=== PATIENT | male | born 1950 | race Caucasian/White ===

== ENCOUNTER 2018-11-28 13:32 | Emergency (ER) | payer OTHER ==
--- NOTE | 2018-11-28 13:55 | EDPHY ---
H & P Stated Complaint: right arm injury, seen at urgent, near syncopal episode sent here for eval Source: Patient, Family ( and daughter) Exam Limitations: No limitations - Personal History Current Tetanus Diphtheria and Acellular Pertussis (TDAP): Yes - Medical/Surgical History Hx Asthma: No Hx Chronic Respiratory Disease: No Hx Diabetes: Yes Hx Cardiac Disease: No Hx Renal Disease: No Hx Cirrhosis: No Hx Alcoholism: No Hx HIV/AIDS: No Hx Splenectomy or Spleen Trauma: No Other PMH: hypothyroid, diabetes type II, hypercholesteremia - Social History Smoking Status: Former smoker Time Seen by Provider: 11/28/18 13:55 HPI/ROS: HPI: This is a 68-year-old male who presents with Chief Complaint: right arm injury, seen at urgent, near syncopal episode sent here for eval Location: Right arm Quality: Injury Duration: 1-2 hours prior to arrival Signs and Symptoms: No bleeding, no radiation, no numbness, no weakness, no tingling, no incontinence, no decreased range of motion, no swelling, + pain, no fever, + deformity Timing: Acute Severity: Moderate Context: Patient is right-hand dominant, presents with complaints of 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 Patient reports that he was lifting rocks when he felt a pulling sensation in his biceps muscle and then deformity. He reports that the pain was so intense that he has felt lightheaded and became extremely nauseous. Patient then went to the urgent care for further evaluation. When he told him that he almost fainted due to the pain they directed him to the emergency room for further evaluation. Denies LOC/head injury/neck pain/dizziness/nausea/vomiting/ amnesia. Patient reports that he had a nuclear stress test this year that was "normal." Patient reports that he no longer feels faint and denies dizziness, chest pain, shortness of breath, headache, nausea, vomiting. He reports that he has no pain at this time. Modifying Factors: None Comment: ROS: A comprehensive 10 system review of systems is otherwise negative aside from elements mentioned in the history of present illness. MEDICAL/SURGICAL/SOCIAL HISTORY: Medical history: hypothyroid, diabetes type II, hypercholesteremia Surgical history: Denies Social history: with children. Former smoker. CONSTITUTIONAL: Physically fit adult white male, daughter and at bedside, awake and alert, no obvious distress HEENT: Atraumatic and normocephalic. NECK: supple, no midline tenderness, flexion 45 degrees, extension 45 degrees, right and left lateral flexion 45 degrees. No meningismus. Cardiovascular: Normal S1/S2, regular rate, regular rhythm, without murmur rub or gallop. PULMONARY/CHEST: Symmetrical and nontender. Clear to auscultation bilaterally. Good air movement. No accessory muscle usage. ABDOMEN: Soft, nondistended, nontender. EXTREMITIES: 2/2 pulses, strength 5/5, right SHOULDER: Arc test abduction to 180, abduction to 45, horizontal flexion 130, horizontal extension to 45, deltoid strength 5/5. No pain with Neer test/Díaz test (impingement). No Tenderness to palpation over AC joint. Deformity noted at the long head of the biceps. DIP/PIP/MCP flexion/extension intact with good light touch sensation. Tenderness at the distal biceps head. Ecchymosis noted over the bicep head. Positive biceps squeeze test. no clubbing, no cyanosis or edema. NEUROLOGICAL: no focal neuro deficits. GCS 15. Light touch sensation intact. SKIN: Warm and dry, no erythema. no rash. Good capillary refill. (Suzanne Woodard) The patient was evaluated and managed by the physician surgical supply assistant. I have reviewed this chart and I agree with the findings and plan of care as documented , as indicated by my signature. I am the secondary supervising physician. ( Carolina Rivera) Constitutional: Initial Vital Signs Temperature (C) 36.4 C 11/28/18 13:41 Heart Rate 72 11/28/18 13:41 Respiratory Rate 16 11/28/18 13:41 Blood Pressure 109/52 L 11/28/18 13:41 O2 Sat (%) 96 11/28/18 13:41 O2 Delivery Mode Room Air Allergies/Adverse Reactions: No Known Allergies Allergy (Unverified 11/28/18 13:46) Home Medications: Medication Instructions Recorded Levothyroxine 11/28/18 Metformin HCl 11/28/18 Statin 11/28/18 oxyCODONE/APAP 5/325 [Percocet 1 - 2 tab PO Q4H PRN #10 tab 11/28/18 5/325 (*)] Medical Decision Making - Diagnostics Imaging Results: Imaging Impressions Upper Extremity MRI 11/28/18 14:08 Impression: 1. Complete tear long head biceps tendon with retraction to the humeral neck level. 2. Degenerative maceration and partial tear superior glenoid labrum. 3. Acromioclavicular degenerative arthropathy. Preliminary results called to Suzanne Woodard PA-C, at 5:[address] Joss Lr. Procedures: Procedure: Splint placement. A right sling was applied. After application of the splint I returned and re- examined the patient. The splint was adequately immobilizing the joint and distal to the splint the patient's circulation and sensation was intact. (Suzanne Woodard) ED Course/Re-evaluation: Vital signs reviewed and stable upon arrival. Placed on threat monitoring analyst. Patient appears to have had a vasovagal near syncopal event secondary to pain I am concerned that patient has either a slap or labral tear versus bicep tendon rupture. MRI of the shoulder joint ordered 1525: to MRI 1713: Called by radiologist, Dr. Lr, who reports that MRI of the shoulder shows long head biceps rupture; totally avulsed and retracted down approximately 5-6 cm. Placed in sling. 1715: ED decision to consult Orthopedics. Spoke with Dr. Escalera reports for the patient to call his office tomorrow morning for an appointment date and time in the next 1-2 days and to discuss conservative versus surgical management. No signs of neurovascular compromise/tenting of skin/compartment syndrome/ extremities and joints examined above and below area of concern and are neurovascularly intact. This patient was seen under the supervision of my secondary supervising physician. I evaluated care for this patient independently. (Suzanne Woodard) Differential Diagnosis: Shoulder injury differential diagnosis includes but is not limited to clavicle fracture, contusion, AC joint separation, rotator cuff injury, labral tear, humeral head fracture, sprain, scapula fracture. (Suzanne Woodard) Departure - Departure Disposition: Home, Routine, Self-Care Clinical Impression: Rupture of long head biceps tendon Condition: Good Instructions: Repairs of the Biceps and Triceps Tendons (DC), Tendon Rupture ( ED), Biceps Tenodesis (DC) Additional Instructions: Limit use of right upper extremity until seen by Orthopedics. Wear the sling while out of bed except when showering until seen by Orthopedics. Take Tylenol 650 mg every 4 hours and/or Ibuprofen 600 mg every 8 hours with food as needed for pain. Use Percocet every 6 hours as needed for severe/break through pain. Do not use Tylenol and Percocet concomitantly. Apply ice for 30 minutes at a time; 2-3 times per day for the next 1-2 days. Follow up with Orthopedics in 1-2 days at which time they will evaluate and recommend with you if conservative management versus surgery is indicated. Call Dr. Escalera's office tomorrow for appointment date and time. Follow-Up: Please follow-up as noted above. Follow-up sooner if your condition worsens or if you develop any new problems. Call as soon as possible for an appointment. Be clear when you call for an appointment that this is an Emergency Department follow-up. Contact the Emergency Department if you have trouble arranging follow-up care. Our referrals are not based on your insurance network. When time allows, contact your insurance carrier to verify the referral physician is in your plan. If not, get a referral for an in-network security consultant. Referrals: Quang Blackman MD [Primary Care Provider] - As per Instructions Uzma Escalera MD [Medical Doctor] - As per Instructions Prescriptions: oxyCODONE/APAP 5/325 [Percocet 5/325 (*)] 1 - 2 tab PO Q4H PRN #10 tab PRN Reason: Pain, Severe
[2018-11-28 17:51] VITALS: BP 111/88
== END 2018-11-28 18:06 | disposition home or self-care (01) ==
DX: M66.821 Spontaneous rupture of other tendons, right upper arm (principal); M75.81 Other shoulder lesions, right shoulder; M19.011 Primary osteoarthritis, right shoulder; E11.9 Type 2 diabetes mellitus without complications; Z87.891 Personal history of nicotine dependence
CPT/HCPCS: 73221; 99284; A4565